=== PATIENT | male | born 1970 | race Two or more races ===

== ENCOUNTER 2021-10-28 15:37 | Inpatient (IN) | payer OTHER ==
[~2021-10-28] VITALS: Ht 167.6 cm; Wt 108.4 kg
[2021-10-28 17:04] LABS: BASOPHILS % 0.8 % (0.0-2.0); EOSINOPHILS % 3.9 % (0.0-5.0); HEMATOCRIT. 45.1 % (42.0-52.0); LYMPHOCYTES % 20.3 % (20.0-50.0); MEAN CORPUSCULAR HEMOGLOBIN 28.4 pg (28.0-32.0); MEAN PLATELET VOLUME 8.4 fl (7.4-10.4); MONOCYTES % 5.8 % (2.0-8.0); NEUTROPHILS % 69.2 % (40.0-76.0); PLATELET 223 x1000/uL (130-400); RED BLOOD CELL COUNT 5.63 mill/uL (4.7-6.1); RED CELL DISTRIBUTION WIDTH 12.9 % (11.6-14.6)
[2021-10-28 17:06] LABS: CHLORIDE 106 mEq/L (98-107)
[2021-10-29 02:52] VITALS: BP 142/87
[2021-10-29] MEDS ORDERED: ASPI-1497 PO (03:21)
[2021-10-29] MEDS ORDERED: AMLO5TAB88 PO (03:21)
[2021-10-29] MEDS ORDERED: HYDR25TA PO (03:21)
[2021-10-29] MEDS ORDERED: PIOG30TA71 PO (03:21)
[2021-10-29] MEDS ORDERED: LISI40TA13 PO (03:21)
[2021-10-29] MEDS ORDERED: INSU300I3 SQ (03:21)
[2021-10-29] MEDS ORDERED: ATOR-2 PO (03:21)
[2021-10-29] MEDS ORDERED: ATEN50TA PO (03:21)
[2021-10-29] MEDS ORDERED: SEMA1PEN SQ (03:21)
[2021-10-29] MEDS ORDERED: INSU100I13 SQ (03:21)
[2021-10-29 04:00] VITALS: BP 133/78
[2021-10-29] MEDS ORDERED: MAGNESIUM/ALUMINUM HYDROXIDE/SIMETHICONE 30ML UDC PO PRN (05:30)
[2021-10-29] MEDS ORDERED: HYDROCODONE/ACETAMINOPHEN 5/325MG TABLET PO PRN (05:30)
[2021-10-29] MEDS ORDERED: ACETAMINOPHEN 325MG TABLET PO PRN (05:30)
[2021-10-29] MEDS ORDERED: CLONIDINE 0.1MG TABLET PO PRN (05:30)
[2021-10-29] MEDS ORDERED: ONDANSETRON HCL 4MG/2ML INJ IV PRN (05:30)
[2021-10-29] MEDS ORDERED: NALOXONE HCL 0.4 MG/ML 1ML VIAL IV PRN (06:00)
[2021-10-29] MEDS ORDERED: AMLODIPINE 10MG TABLET PO SCH (06:00)
[2021-10-29 08:07] VITALS: BP 106/62
[2021-10-29] MEDS ORDERED: ASPIRIN 81MG EC TABLET PO SCH ×2 (09:00→10:30)
[2021-10-29 10:09] LABS: LDL CHOLESTEROL 73 mg/dL (5-100)
[2021-10-29 10:10] LABS: HDL CHOLESTEROL 24 mg/dL (40-59)
[2021-10-29] MEDS ORDERED: ATENOLOL 50 MG TABLET PO SCH (10:30)
[2021-10-29] MEDS ORDERED: HYDROCHLOROTHIAZIDE 25MG TABLET PO SCH (11:00)
[2021-10-29] MEDS ORDERED: INSULIN GLARGINE 100 UNITS/ML SUBCUT SCH (11:30)
[2021-10-29 11:50] VITALS: BP 130/80
[2021-10-29 12:12] VITALS: BP 130/80
[2021-10-29] MEDS ORDERED: ATORVASTATIN CALCIUM 40MG TABLET PO SCH (21:00)
[2021-10-29] MEDS ORDERED: LISINOPRIL 40MG TABLET PO SCH (21:00)
== END 2021-10-29 13:28 | disposition home or self-care (01) | DRG 206 ==
LOC: ER 15:37 → MICUSO 21:59 → EDBEDREQTM 22:01 → EDBEDREQ 22:01 → 8WST 10-29 02:12
PROVIDERS: ADMIT Hospitalist; ATTEND Hospitalist
DX: M94.0 Chondrocostal junction syndrome [Tietze] (principal); I24.9 Acute ischemic heart disease, unspecified; E11.9 Type 2 diabetes mellitus without complications; E78.5 Hyperlipidemia, unspecified; I10 Essential (primary) hypertension; Z87.891 Personal history of nicotine dependence
CPT/HCPCS: 36415; 71045; 80053; 80061; 82962; 83036; 83880; 84484; 85025; 93005; 93306; 99285; J1815

== ENCOUNTER 2022-02-11 14:24 | Emergency (ER) | payer OTHER ==
[~2022-02-11] VITALS: Ht 172.7 cm; Wt 106.0 kg
[~2022-02-11 14:24] MED LIST: AMLO5TAB88 PO; ASPI-1497 PO; ATEN50TA PO; ATOR-2 PO; HYDR25TA PO; INSU100I13 SQ; INSU300I3 SQ; LISI40TA13 PO; PIOG30TA71 PO; SEMA1PEN SQ
[2022-02-11 14:33] VITALS: BP 160/102
[2022-02-11] MEDS ORDERED: ACETAMINOPHEN 325MG TABLET PO STA (19:03)
[2022-02-11 19:08] LABS: HEMATOCRIT. 47.7 % (42.0-52.0); HEMOGLOBIN. 16.2 g/dL (14.0-18.0); MEAN CORPUSCULAR VOLUME 82.4 fL (80.0-94.0); MEAN PLATELET VOLUME 8.5 fl (7.4-10.4); PLATELET 282 x1000/uL (130-400); RED BLOOD CELL COUNT 5.79 mill/uL (4.7-6.1); RED CELL DISTRIBUTION WIDTH 13.3 % (11.6-14.6)
[2022-02-11 19:11] LABS: CHLORIDE 101 mEq/L (98-107)
[2022-02-11 20:42] LABS: PLATELET ESTIMATE NORMAL
[2022-02-11] MEDS ORDERED: IBUP-2028 MT (21:58)
[2022-02-11] MEDS ORDERED: TOPUD PO (21:58)
[2022-02-11] MEDS ORDERED: ALBU6.7H9 INH (22:09)
[2022-02-11] MEDS ORDERED: DEXAMETHASONE 2MG TABLET PO ONE (22:15)
[2022-02-11] MEDS ORDERED: ACETAMINOPHEN 325MG TABLET PO SCH (22:15)
== END 2022-02-11 22:30 | disposition home or self-care (01) ==
LOC: ER 14:24
DX: R05.9 Cough, unspecified (principal); E78.00 Pure hypercholesterolemia, unspecified; I10 Essential (primary) hypertension; E11.9 Type 2 diabetes mellitus without complications; Z20.822 Contact with and (suspected) exposure to COVID-19; Z79.899 Other long term (current) drug therapy
CPT/HCPCS: 36415; 71045; 80053; 85025; 87426; 87804; 93005; 99285; C9803; J8540